=== PATIENT | male | born 1955 | race Caucasian/White ===

== ENCOUNTER → 2020-08-18 | Outpatient (CLI) | payer OTHER ==
[~2020-08-18] MED LIST: AZITHROMYCIN500 MG PO
== END ==
LOC: KOH-I 11:18
DX: M25.561 Pain in right knee (principal); M25.562 Pain in left knee; M54.5 Low back pain; M48.07 Spinal stenosis, lumbosacral region; M47.816 Spondylosis without myelopathy or radiculopathy, lumbar region
CPT/HCPCS: 72110; 73564

== ENCOUNTER → 2020-08-27 | Outpatient (CLI) | payer OTHER | LOC: HEART 5 14:52 | DX: M25.551 Pain in right hip (principal); M25.552 Pain in left hip ==

== ENCOUNTER 2021-04-22 11:26 | Emergency (ER) | payer OTHER ==
[~2021-04-22] VITALS: Ht 175.3 cm; Wt 90.7 kg
== END 2021-04-22 15:24 | disposition home or self-care (01) ==
LOC: ER1 11:26
DX: U07.1 COVID-19 (principal); Z23 Encounter for immunization; I10 Essential (primary) hypertension; E11.9 Type 2 diabetes mellitus without complications; E78.5 Hyperlipidemia, unspecified; Z90.49 Acquired absence of other specified parts of digestive tract
CPT/HCPCS: 71045; 99284; M0243